=== PATIENT | female | born 1950 | race African-American/Black ===

== ENCOUNTER 2016-10-14 09:05 | Inpatient (IN) | payer MEDICARE, OTHER ==
--- NOTE | ~2016-10-14 | HP ---
History And Physical [id number] [place]. [address] NAME: ETHEL REAGAN : 54 STATUS : ADM IN [facility]#: [id number] AGE: 65 ADM/REG DATE : 10/14/16 MR#: [id number] REPORT SERV DATE: 10/14/16 DICTATED BY: ALAN JENNINGS DATE: 10/14/16 REPORT STATUS : Draft TRANSCRIBED BY: KIMBER DATE: 10/14/16 DATE OF ADMISSION: 10/14/2016 CHIEF COMPLAINT: Altered mentation per [facility]. HISTORY OF PRESENT ILLNESS: Ms. Reagan is a 65-year-old female with ESRD who dialyzes Wednesday, Wednesday, Wednesday at [facility] through a left upper arm AV fistula. She resides at [facility] and was seen in today for altered mental status. According to the ED facility report, the patient has not been verbal for the last few days. Her sugar was relatively low, and after 2 amps of D50, her Accu-Chek was up to 79. 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 Her white count was 6.4 thousand, potassium 4.8, AST 116, ALT 180. Urinalysis showed gross infection with pus and blood in the urine. Albarado catheter was placed. She has been hypotensive in the emergency room with systolic in the 80s. She is unresponsive to my exam. PAST MEDICAL HISTORY: 1. ESRD, Wednesday, Wednesday, at [facility], left upper arm AV fistula. 2. History recurrent UTIs with sepsis. 3. Insulin-dependent diabetes mellitus with blindness. 4. Hyperlipidemia, on statin. 5. COPD. 6. Left BKA. MEDICATIONS: Include albuterol nebulizers p.r.n.; Lipitor 40 mg at bedtime; Itzel-Wendy daily, baclofen 5 mg with breakfast and lunch; PhosLo with meals; Plavix 75 mg daily; Depakote 250 mg q.a.m., 500 mg at bedtime; Neurontin 300 mg at bedtime; Lantus 20 units q.a.m.; sliding scale Humalog insulin; Ativan p.r.n.; midodrine 10 mg b.i.d.; Dulera inhaler 2 puffs twice a day, fish oil 1000 mg b.i.d., Endocet p.r.n.; MiraLAX p.r.n.; Zoloft 50 mg daily; Zantac 75 mg b.i.d.; Renvela 1600 mg with meals; Spiriva capsule inhaled every day. FAMILY HISTORY, SOCIAL HISTORY, AND REVIEW OF SYSTEMS: Cannot be obtainable in the patient's current condition. PHYSICAL EXAMINATION: VITAL SIGNS: Temperature 98.2, pulse 79, respirations 16, blood pressure most recent check 100/50, 99% O2 saturation on oxygen per nasal cannula. GENERAL: She is an unresponsive female, does not respond to any verbal or noxious stimuli. She is reportedly vision impaired and legally blind. HEENT: Sclerae without icterus. Conjunctivae not injected. Oropharynx is clear. Mucous members are dry. No JVD. LUNGS: She has bilateral rhonchi with decreased respiratory rate. Regular rate and rhythm. No rub. ABDOMEN: Soft, nondistended. EXTREMITIES: Without edema. SKIN: Without rash. Left BKA is noted. No obvious wounds to the right leg or left stump. History And Physical [address] [address] NAME: ETHEL REAGAN : 54 STATUS : ADM IN [facility]#: [id number] AGE: 65 ADM/REG DATE : 10/14/16 MR#: [id number] REPORT SERV DATE: 10/14/16 DICTATED BY: ALAN JENNINGS DATE: 10/14/16 REPORT STATUS : Draft TRANSCRIBED BY: KIMBER DATE: 10/14/16 Left upper arm fistula palpable, thrill, audible bruit. She has turbid, bloody urine in the Albarado catheter. LABORATORY DATA: Sodium 138, potassium 4.8, bicarb 29, BUN 67, creatinine 9.3, glucose 147 on presentation. Calcium 9.1, magnesium 2.4, albumin 3.5. AST 116, ALT 180, troponin normal. BNP 104. White count 6.4 thousand, hemoglobin 13.2, platelets 212,000. INR 1.1. ASSESSMENT AND PLAN: Ms. Reagan has end-stage renal disease, on maintenance dialysis presenting with encephalopathy, minimal responsiveness, hypotension, probable urinary tract infection with suspected sepsis, long-standing insulin-dependent diabetes mellitus with blindness, elevated LFTs, hyperlipidemia on statin, chronic obstructive pulmonary disease, left below-knee amputation. Admit to the Renal Service. Check another stat Accu-Chek to evaluate blood sugar. She will be held n.p.o. for now. It is unclear at this point whether she has encephalopathy from medications, urinary tract infection or possible sepsis and low blood pressure, hypoperfusion? She will receive a triple-lumen catheter in the ER, start pressor support as needed, IV vancomycin and Rocephin. Watch response to treatment. She is reportedly a full code according to the paperwork from [facility]. Unfortunately with her blood pressure in current condition, she is too unstable for hemodialysis today. Her prognosis is presently guarded. We will watch closely to the above response. NC/MODL Alan Jennings M.D. / [id number] CC: Alan Jennings M.D.
--- NOTE | ~2016-10-14 | DS ---
Discharge Summary [facility] [address] [place]. [address] NAME: ETHEL REAGAN : 54 STATUS : DIS IN PAT#: [id number] AGE: 65 ADM/REG DATE : 10/14/16 MR#: [id number] REPORT SERV DATE: 10/23/16 DICTATED BY: ALAN JENNINGS DATE: 10/23/16 REPORT STATUS : Draft TRANSCRIBED BY: KIMBER DATE: 10/23/16 Data Collection from hospitalization DISCHARGE DIAGNOSES: 1. End-stage renal disease. 2. Encephalopathy. 3. Insulin-dependent diabetes mellitus. 4. Chronic obstructive pulmonary disease. 5. History of left below-knee amputation. 6. Anemia. 7. Hypoglycemia. 8. Questionable seizure. 9. Blindness. 10.Hyperlipidemia. 11.Elevated liver function tests. CONSULTATIONS: None. PROCEDURES PERFORMED: 1. CT scan of the brain without contrast on 10/14/2016. 2. CT scan of the abdomen and pelvis without contrast on 10/14/2016. MEDICATIONS: Pepcid 20 mg daily and Ceftin 250 mg daily for seven days. CONDITION AT DISCHARGE: Stable. DISPOSITION: The patient was discharged to [facility]. She will follow up with [facility] on Wednesday following discharge for outpatient hemodialysis. HOSPITAL COURSE: This is a 65-year-old female who has end-stage renal disease and dialyzes on Mondays, Wednesdays, and Fridays through a left upper arm AV fistula. She resides at [facility] and had been seen on the day of this admission for an altered mental status. According to the emergency department facility report, the patient had not been verbal over the past few days. Her blood sugar was relatively low and after 2 amps of D50, her Accu-Chek was up to 79. A CT scan of the brain without contrast and CT scan of the abdomen showed no acute REVIEW TRAINER or GI changes. Chest x-ray showed no active disease process. Urinalysis did show gross infection with pus and blood in the urine. A Albarado catheter was placed. She was hypotensive in the emergency room with systolic in the 80s. She was unresponsive to my exam. She was admitted to the hospital for further evaluation and treatment. Upon admission, she was held n.p.o. A triple-lumen catheter was placed in the emergency room. Crestor support was started. IV vancomycin and Rocephin were begun. With her blood pressure in its current condition, she was too unstable for hemodialysis on the day of this admission. Her prognosis was guarded at the present time. A PICC line was inserted. The following day, she was in no acute distress. She was awake and alert. She was lying flat with no dyspnea. She was much improved clinically. Antibiotics were continued. She was going to undergo dialysis. On 10/16/2016, she was wanting to get out of bed. She had no Discharge Summary [address] [address] NAME: ETHEL REAGAN : 54 STATUS : DIS IN PAT#: [id number] AGE: 65 ADM/REG DATE : 10/14/16 MR#: [id number] REPORT SERV DATE: 10/23/16 DICTATED BY: ALAN JENNINGS DATE: 10/23/16 REPORT STATUS : Draft TRANSCRIBED BY: MODL DATE: 10/23/16 edema. Her cultures were negative. She was felt to have had a questionable seizure at the time of admission. Discharge planning was performed. On 10/17/2016, hemodialysis therapy was performed. She had no dyspnea. Oral antibiotics were continued. Discharge instructions were given. Due to her improved and stable condition, she was discharged to [facility] with the above-stated instructions. Information collected by: Rhea Dixon I submit the above information as my discharge summary. OLEG/KIMBER Alan Jennings M.D. / [id number] CC: Fabio Hendrix D.O. [facility]
[~2016-10-14 09:05] MED LIST: 8 HOUR650 MG PO; ACIDOPHILU1 PO; ACIDOPHILU2 PO; ADVAIR100 INH; ALBUTEROL SULFATE INH; AMB5 PO; ANUCORT-HC25 MG RE; ATV.5 PO; BETIMOL0.5 % OP; BISR PR; BIST PO; CARDCD120 PO; CEFAZ500 IV; CELEXA20 PO; DEPAKOT250 PO; DEPAKOT500 PO; DEPAKOTE EC PO; DSS PO; ENDOCET1 TAB PO; FERROUS SULF325 M1 PO; FISH-EPA1000 MG PO; FLONASE NAS; FRESHKOTE OPH; HUMALOG SC; HYSEPT TOP; IODOSORB TOP; KIONEX PO; LACTINEX PO; LANTUS SC; LEVAQUIN5T PO; LIPITOR40 PO; LISINOPRIL40 MG PO; MIRALAXPKT OR; MIRALAXPKT PO; MONODOX100 MG PO; MYCOSCROI TOP; NEPHRO-VITE PO; NEUR100 PO; NEUR300 PO; NITROQUICK0.4 MG SL; NORV25 PO; NOVOLOG SC; NOVOLOGMIX SC; NXL3 PO; NXL6 PO; OXYCOD PO; PCET PO; PERCOCET1 TA2 PO; PHOSLO PO; PLAVIX PO; PR25 PO; PREDFORTE OPH; PRILO PO; PRIN10 PO; PRIN20 PO; PRIN5 PO; PROAMATINE10 MG PO; PROMEGA PO; PROVENTSOL INH; RENA-VITE PO; RENVELA800 MG PO; ROBITUSS21 OR; ROCEPH IM; ROXICET1 TAB PO; SANTYL250 MG/GM TOP; SEROQUEL25 PO; SEVE800T PO; SODIUM HYPOCHLORITE 0.5% TOP; SORB PO; SPIRIVA INH; T PO; TIMOLOL MAL0.5 % OPH; TRAZ50 PO; TUMSROLL PO; TYLENOL ARTH650 MG PO; XALAT OPH; ZOFRAN4 PO; ZOL50 PO; [UNRECOGNIZED DRUG - OTHER] MT; [UNRECOGNIZED DRUG - OTHER] OR; [UNRECOGNIZED DRUG - OTHER] OR; [UNRECOGNIZED DRUG - OTHER] TOP
[2016-10-14] MEDS ORDERED: RENA-VITE PO (10:02)
[2016-10-14] MEDS ORDERED: PHOSLO PO (10:02)
[2016-10-14] MEDS ORDERED: FISH-EPA1000 MG PO (10:03)
[2016-10-14] MEDS ORDERED: SPIRIVA INH (10:03)
[2016-10-14] MEDS ORDERED: DSS PO (10:03)
[2016-10-14] MEDS ORDERED: RENVELA800 MG PO (10:04)
[2016-10-14] MEDS ORDERED: MIRALAX POWDER1 PKT PO (10:04)
[2016-10-14] MEDS ORDERED: ACIDOPHILU2 PO (10:05)
[2016-10-14] MEDS ORDERED: DEPAKOT250 PO (10:05)
[2016-10-14] MEDS ORDERED: PROAMATINE10 MG PO (10:05)
[2016-10-14] MEDS ORDERED: LIOR10 PO (10:06)
[2016-10-14] MEDS ORDERED: DULERA 200 MCG/13 GM INH (10:06)
[2016-10-14] MEDS ORDERED: ZANTAC 75 PO (10:06)
[2016-10-14] MEDS ORDERED: XALAT OPH (10:07)
[2016-10-14] MEDS ORDERED: NEUR300 PO (10:07)
[2016-10-14 10:09] LABS: ASCORBIC ACID (UR NOT ORDER) NEG (NEG); BILIRUBIN, URINE NEGATIVE (NEG); ER URINALYSIS TAT 0 Hrs 21 Mins; KETONE, URINE TRACE MG/DL (NEG); LEUKOCYTE ESTERASE(NOT OR MOD (NEG); NITRITE (URINE) NEG (NEG)
[2016-10-14 10:10] LABS: WBC (NOT ORDERED) (RFLEX) > 182 (0-5)
[2016-10-14] MEDS ORDERED: DEPAKOT500 PO (10:10)
[2016-10-14] MEDS ORDERED: ZOL50 PO (10:11)
[2016-10-14] MEDS ORDERED: LIPITOR40 PO (10:11)
[2016-10-14] MEDS ORDERED: HUMALOG SC (10:31)
[2016-10-14] MEDS ORDERED: LANTUS SC (10:31)
[2016-10-14] MEDS ORDERED: ATV.5 PO (10:32)
[2016-10-14] MEDS ORDERED: BIST PO (10:32)
[2016-10-14] MEDS ORDERED: ZOFRAN4 PO (10:33)
[2016-10-14] MEDS ORDERED: ALBUTEROL0.083 % INH (10:33)
[2016-10-14] MEDS ORDERED: T PO (10:33)
[2016-10-14] MEDS ORDERED: PLAVIX PO (10:34)
[2016-10-14] MEDS ORDERED: ENDOCET1 TAB PO (10:34)
[2016-10-14 11:02] LABS: BASOPHILS 0.5 %; BASOPHILS ABSOLUTE 0.03 10/3/uL (0.0-0.16); EOSINOPHILS 0.5 %; EOSINOPHILS ABSOLUTE 0.03 10/3/uL (0.0-0.53); ER CBC TAT 0 Hrs 03 Mins; HEMATOCRIT 40.4 % (36.0-48.0); HEMOGLOBIN 13.2 g/dL (12.0-16.0); IMMATURE GRANULOCYTES 0.2 %; IMMATURE GRANULOCYTES ABSOLUTE 0.01 10/3/uL (0.0-0.11); LYMPHOCYTES 24.7 %; LYMPHOCYTES ABSOLUTE 1.58 10/3/uL (0.67-4.30); MANUAL DIFF NO %; MEAN CORPUS HGB CONC 32.7 g/dL (32.0-36.0); MEAN CORPUSCULAR HEMOGLOB 30.7 pg (26.0-34.0); MONOCYTES 7.3 %; MONOCYTES ABSOLUTE 0.47 10/3/uL (0.21-1.20); NEUTROPHILS 66.8 %; NEUTROPHILS ABSOLUTE 4.28 10/3/uL (2.02-8.40); PLATELET COUNT 212 10/3/uL (150-400); RBC DISTRIBUTION WIDTH 16.3 % (12.0-16.0); WHITE BLOOD CELLS 6.4 10/3/uL (4.5-10.5)
[2016-10-14 11:10] LABS: INTERNATIONAL NORMAL RATI 1.1 UNITS (-); PARTIAL THROMBO TIME 28.1 SEC (22.5-37.2); PROTIME (NOT ORD) 13.9 SEC (12.0-14.5)
[2016-10-14 11:18] LABS: BUN (BLOOD UREA NITROGEN) 67 MG/DL (6-23); CALCIUM, SERUM 9.1 MG/DL (8.5-10.4); CHEST PAIN PROFILE TAT 0 Hrs 19 Mins; CHLORIDE, SERUM 90 MMOL/L (96-112); CO2 (CARBON DIOXIDE) 29 MMOL/L (24-34); CREATININE 9.35 MG/DL (0.55-1.02); DIRECT BILIRUBIN 0.1 MG/DL (0.0-0.4); GFR AFRICAN AMERICAN 5 ML/MIN (>=60); GFR NON AFRICAN AMERICAN 4 ML/MIN (>=60); GLUCOSE, SERUM 147 MG/DL (60-99); INDIRECT BILIRUBIN(NOT ORDER) 0.3 MG/DL (0.1-0.9); POTASSIUM, SERUM 4.8 MMOL/L (3.5-5.3); SGOT(AST) 116 U/L (5-40); SGPT(ALT) 180 U/L (5-65); SODIUM, SERUM 138 MMOL/L (135-148); TOTAL BILIRUBIN 0.4 MG/DL (0-1.2); TOTAL PROTEIN 9.6 G/DL (6.0-8.5); TROPONIN I <0.02 NG/ML (<0.05)
[2016-10-14 11:19] LABS: ALBUMIN 3.5 G/DL (3.5-5.0); ALKALINE PHOSPHATASE 288 U/L (45-117)
[2016-10-14 11:50] LABS: LACTATE 1.3 MMOL/L (0.3-2.4)
[2016-10-14 19:52] LABS: PROCALCITONIN 13.43 ng/mL (<0.5)
[2016-10-15 02:24] LABS: ASCORBIC ACID (UR NOT ORDER) NEG (NEG); BILIRUBIN, URINE NEGATIVE (NEG); KETONE, URINE NEGATIVE (NEG); LEUKOCYTE ESTERASE(NOT OR MOD (NEG)
[2016-10-15 02:25] LABS: WBC (NOT ORDERED) (RFLEX) > 182 (0-5)
[2016-10-15 04:07] LABS: BASOPHILS 0.2 %; BASOPHILS ABSOLUTE 0.01 10/3/uL (0.0-0.16); EOSINOPHILS 2.7 %; EOSINOPHILS ABSOLUTE 0.13 10/3/uL (0.0-0.53); HEMOGLOBIN 11.2 g/dL (12.0-16.0); IMMATURE GRANULOCYTES 0.4 %; IMMATURE GRANULOCYTES ABSOLUTE 0.02 10/3/uL (0.0-0.11); LYMPHOCYTES ABSOLUTE 1.07 10/3/uL (0.67-4.30); MEAN CORPUS HGB CONC 31.8 g/dL (32.0-36.0); MEAN CORPUSCULAR HEMOGLOB 29.6 pg (26.0-34.0); MEAN CORPUSCULAR VOLUME 93.1 fL (80-100); MONOCYTES 11.3 %; MONOCYTES ABSOLUTE 0.55 10/3/uL (0.21-1.20); NEUTROPHILS 63.4 %; NEUTROPHILS ABSOLUTE 3.08 10/3/uL (2.02-8.40); PLATELET COUNT 204 10/3/uL (150-400); RBC DISTRIBUTION WIDTH 16.2 % (12.0-16.0); RED CELL COUNT 3.78 10/6/uL (4.0-5.6); WHITE BLOOD CELLS 4.9 10/3/uL (4.5-10.5)
[2016-10-15 04:09] LABS: HEMATOCRIT 35.2 % (36.0-48.0); MANUAL DIFF NO %
[2016-10-15 04:30] LABS: BUN (BLOOD UREA NITROGEN) 74 MG/DL (6-23); CALCIUM, SERUM 7.8 MG/DL (8.5-10.4); CHLORIDE, SERUM 99 MMOL/L (96-112); CO2 (CARBON DIOXIDE) 26 MMOL/L (24-34); CREATININE 9.45 MG/DL (0.55-1.02); GFR AFRICAN AMERICAN 5 ML/MIN (>=60); GFR NON AFRICAN AMERICAN 4 ML/MIN (>=60); PHOSPHORUS, SERUM 8.3 MG/DL (2.5-4.5); POTASSIUM, SERUM 4.7 MMOL/L (3.5-5.3); SODIUM, SERUM 140 MMOL/L (135-148)
[2016-10-15 05:55] LABS: GLUCOSE, SERUM 173 MG/DL (60-99)
[2016-10-17 08:23] LABS: BASOPHILS 0.5 %; BASOPHILS ABSOLUTE 0.03 10/3/uL (0.0-0.16); EOSINOPHILS ABSOLUTE 0.33 10/3/uL (0.0-0.53); HEMATOCRIT 33.7 % (36.0-48.0); IMMATURE GRANULOCYTES 0.3 %; IMMATURE GRANULOCYTES ABSOLUTE 0.02 10/3/uL (0.0-0.11); LYMPHOCYTES 39.9 %; LYMPHOCYTES ABSOLUTE 2.64 10/3/uL (0.67-4.30); MEAN CORPUS HGB CONC 32.6 g/dL (32.0-36.0); MEAN CORPUSCULAR HEMOGLOB 30.6 pg (26.0-34.0); MEAN CORPUSCULAR VOLUME 93.6 fL (80-100); MEAN PLATELET VOLUME 11.2 fL (9.2-13.0); MONOCYTES 9.7 %; MONOCYTES ABSOLUTE 0.64 10/3/uL (0.21-1.20); NEUTROPHILS 44.6 %; NEUTROPHILS ABSOLUTE 2.95 10/3/uL (2.02-8.40); PLATELET COUNT 202 10/3/uL (150-400); WHITE BLOOD CELLS 6.6 10/3/uL (4.5-10.5)
[2016-10-17 08:27] LABS: MANUAL DIFF NO %
[2016-10-17 08:33] LABS: ALBUMIN 2.9 G/DL (3.5-5.0); BUN (BLOOD UREA NITROGEN) 59 MG/DL (6-23); CALCIUM, SERUM 8.5 MG/DL (8.5-10.4); CHLORIDE, SERUM 102 MMOL/L (96-112); CO2 (CARBON DIOXIDE) 28 MMOL/L (24-34); CREATININE 9.89 MG/DL (0.55-1.02); GFR AFRICAN AMERICAN 4 ML/MIN (>=60); GFR NON AFRICAN AMERICAN 4 ML/MIN (>=60); GLUCOSE, SERUM 148 MG/DL (60-99); PHOSPHORUS, SERUM 7.8 MG/DL (2.5-4.5); POTASSIUM, SERUM 4.6 MMOL/L (3.5-5.3); SODIUM, SERUM 140 MMOL/L (135-148)
[2017-03-22] MEDS ORDERED: PLAVIX PO (21:02)
[2017-03-22] MEDS ORDERED: RENA-VITE PO (21:03)
[2017-03-22] MEDS ORDERED: HUMALOG SC (21:03)
[2017-03-22] MEDS ORDERED: LANTUS SC (21:03)
[2017-03-22] MEDS ORDERED: SPIRIVA PO (21:03)
[2017-03-22] MEDS ORDERED: ZOL50 PO (21:03)
[2017-03-22] MEDS ORDERED: FISH-EPA1000 MG PO (21:04)
[2017-03-22] MEDS ORDERED: NEUR300 PO (21:04)
[2017-03-22] MEDS ORDERED: RENVELA800 MG PO (21:04)
[2017-03-22] MEDS ORDERED: DSS PO (21:04)
[2017-03-22] MEDS ORDERED: XALAT OPH (21:05)
[2017-03-22] MEDS ORDERED: DEPAKOT500 PO (21:05)
[2017-03-22] MEDS ORDERED: MIRALAX POWDER1 PKT PO (21:05)
[2017-03-22] MEDS ORDERED: PHOSLO PO (21:05)
[2017-03-22] MEDS ORDERED: ACIDOPHILU2 PO (21:06)
[2017-03-22] MEDS ORDERED: PROAMATINE10 MG PO (21:06)
[2017-03-22] MEDS ORDERED: DEPAKOT250 PO (21:06)
[2017-03-22] MEDS ORDERED: DULERA 200 MCG/13 GM INH (21:06)
[2017-03-22] MEDS ORDERED: ZANTAC 75 PO (21:06)
[2017-03-22] MEDS ORDERED: BIST PO (21:07)
[2017-03-22] MEDS ORDERED: LIOR10 PO (21:07)
[2017-03-22] MEDS ORDERED: ALBUTEROL0.083 % INH (21:08)
[2017-03-22] MEDS ORDERED: ZOFRAN4 PO (21:08)
[2017-03-22] MEDS ORDERED: T PO (21:08)
[2017-03-22] MEDS ORDERED: OXYCOD PO (21:09)
[2017-03-22] MEDS ORDERED: NITROSTAT0.4 MG SL (21:09)
[2017-04-23] MEDS ORDERED: RENA-VITE PO (10:40)
[2017-04-23] MEDS ORDERED: SPIRIVA INH (10:40)
[2017-04-23] MEDS ORDERED: ACIDOPHILU2 PO (10:41)
[2017-04-23] MEDS ORDERED: RENVELA800 MG PO (10:41)
[2017-04-23] MEDS ORDERED: DEPAKOT250 PO (10:41)
[2017-04-23] MEDS ORDERED: D.O.S.100 MG PO (10:41)
[2017-04-23] MEDS ORDERED: ZANTAC 75 PO (10:42)
[2017-04-23] MEDS ORDERED: DULERA 200 MCG/13 GM INH (10:42)
[2017-04-23] MEDS ORDERED: PROAMATINE10 MG PO (10:42)
[2017-04-23] MEDS ORDERED: BISR PR (10:43)
[2017-04-23] MEDS ORDERED: LIOR10 PO (10:43)
[2017-04-23] MEDS ORDERED: PHOSLO PO (10:44)
[2017-04-23] MEDS ORDERED: BION TEARS OPH (10:44)
[2017-04-23] MEDS ORDERED: NEUR300 PO (10:44)
[2017-04-23] MEDS ORDERED: MIRALAX POWDER1 PKT PO (10:44)
[2017-04-23] MEDS ORDERED: FISH-EPA1000 MG PO (10:45)
[2017-04-23] MEDS ORDERED: DEPAKOT500 PO (10:45)
[2017-04-23] MEDS ORDERED: ZOL50 PO (10:45)
[2017-04-23] MEDS ORDERED: XALAT OPH (10:45)
[2017-04-23] MEDS ORDERED: ALBUTEROL5 INH (10:50)
[2017-04-23] MEDS ORDERED: HUMALOG SC (10:57)
[2017-04-23] MEDS ORDERED: LEVEMIR SC (10:57)
[2017-04-23] MEDS ORDERED: ZOFRAN4 PO (10:58)
[2017-04-23] MEDS ORDERED: OXYCOD PO (10:58)
[2017-04-23] MEDS ORDERED: NITROSTAT0.4 MG SL (10:58)
[2017-04-23] MEDS ORDERED: PLAVIX PO (11:01)
== END 2016-10-17 17:33 | DRG 871 ==
LOC: ER 09:05 → 4SO 15:44 → ER/OF 16:01 → CCU 17:41 → 2SO 10-15 13:14
PROVIDERS: Emergency Medicine; Internal Medicine Nephrology; Nurse Practitioner
PROC: 4A02X4A Measurement of Cardiac Electrical Activity, Guidance, External Approach (ICD-10-PCS; 2016-10-14)
PROC: 02HV33Z Insertion of Infusion Device into Superior Vena Cava, Percutaneous Approach (ICD-10-PCS; principal; 2016-10-15)
PROC: 5A1D60Z (ICD-10-PCS; 2016-10-17)
DX: A41.9 Sepsis, unspecified organism (principal); N18.6 End stage renal disease; G93.40 Encephalopathy, unspecified; E11.22 Type 2 diabetes mellitus with diabetic chronic kidney disease; N39.0 Urinary tract infection, site not specified; E78.5 Hyperlipidemia, unspecified; Z23 Encounter for immunization; J44.9 Chronic obstructive pulmonary disease, unspecified; H54.0 Blindness, both eyes; Z99.2 Dependence on renal dialysis; Z79.4 Long term (current) use of insulin; Z87.440 Personal history of urinary (tract) infections; Z89.512 Acquired absence of left leg below knee; Z79.899 Other long term (current) drug therapy
CPT/HCPCS: 36569; 70450; 71010; 74176; 80048; 80069; 80076; 81001; 82962; 83605; 83735; 83880; 84145; 84484; 85025; 85610; 85730; 87040; 87086; 87641; 90686; 94640; 96374; 99291; 99292; A9270-GY; C1751; G0008; G0257; J2405; J3370; P9047